=== PATIENT | male | born 1950 | race Caucasian/White ===

== ENCOUNTER → 2018-11-24 | Outpatient (CLI) | payer MEDICARE | END | disposition home or self-care (01) | LOC: CFH 14:19 | PROVIDERS: ATTEND Family Medicine | DX: R91.8 Other nonspecific abnormal finding of lung field (principal) | CPT/HCPCS: 71046 ==

== ENCOUNTER 2018-12-26 09:15 | Outpatient (CLI) | payer MEDICARE ==
[2019-02-01] MEDS ORDERED: PANT40TA5 PO (13:43)
[2019-02-01] MEDS ORDERED: UMEC62.5 INH (13:43)
[2019-02-01] MEDS ORDERED: ALBU90AE INH (13:43)
[2019-02-01] MEDS ORDERED: ATOR40TA78 PO (13:43)
[2019-02-01] MEDS ORDERED: MOME13HF INH (13:43)
== END 2018-12-26 23:59 | disposition home or self-care (01) ==
LOC: CFH 09:15
PROVIDERS: ATTEND Family Medicine
DX: R91.8 Other nonspecific abnormal finding of lung field (principal)
CPT/HCPCS: 71046

== ENCOUNTER 2019-01-17 08:33 | Outpatient (CLI) | payer MEDICARE | END 2019-01-17 23:59 | disposition home or self-care (01) | LOC: CFH 08:33 | PROVIDERS: ATTEND Family Medicine | DX: J44.9 Chronic obstructive pulmonary disease, unspecified (principal); R91.8 Other nonspecific abnormal finding of lung field; R59.9 Enlarged lymph nodes, unspecified | CPT/HCPCS: 71260; 82565; Q9967 ==

== ENCOUNTER → 2020-01-11 | Outpatient (CLI) | payer MEDICARE ==
[~2020-01-11] MED LIST: ALBU90AE INH; ATOR40TA78 PO; MOME13HF INH; PANT40TA5 PO; UMEC62.5 INH
== END | disposition home or self-care (01) ==
LOC: CFH 13:16
PROVIDERS: ATTEND Surgery
DX: J43.9 Emphysema, unspecified (principal); R59.0 Localized enlarged lymph nodes; I25.10 Atherosclerotic heart disease of native coronary artery without angina pectoris; K44.9 Diaphragmatic hernia without obstruction or gangrene; M51.34 Other intervertebral disc degeneration, thoracic region; R91.1 Solitary pulmonary nodule
CPT/HCPCS: 71250

== ENCOUNTER → 2020-08-26 | Outpatient (CLI) | payer MEDICARE ==
[~2020-08-26] MED LIST changes: +OMNIPAQUE 350 MG/ML, 75ML BOTTLE ONE; -PANT40TA5 PO; +PANT40TA6 PO
== END | disposition home or self-care (01) ==
LOC: CFH 12:47
PROVIDERS: ATTEND Surgery
DX: R91.1 Solitary pulmonary nodule (principal); J43.9 Emphysema, unspecified; K44.9 Diaphragmatic hernia without obstruction or gangrene; R59.0 Localized enlarged lymph nodes
CPT/HCPCS: 71260; 82565; Q9967